=== PATIENT | female | born 1985 | race Caucasian/White ===

== ENCOUNTER → 2017-09-07 | Outpatient (CLI) | payer OTHER | LOC: FIMAGING 07:31 | PROVIDERS: ATTEND Hospitalist | DX: O24.419 Gestational diabetes mellitus in pregnancy, unspecified control (principal); D56.0 Alpha thalassemia; Z3A.29 29 weeks gestation of pregnancy ==

== ENCOUNTER → 2017-10-12 | Outpatient (CLI) | payer OTHER | LOC: FIMAGING 07:51 | PROVIDERS: ATTEND Hospitalist | DX: O24.419 Gestational diabetes mellitus in pregnancy, unspecified control (principal); Z3A.34 34 weeks gestation of pregnancy ==